=== PATIENT | female | born 1975 | race Hispanic/Latino ===

== ENCOUNTER 2018-03-19 13:24 | Emergency (ER) | payer SELFPAY ==
[~2018-03-19 13:24] MED LIST: ISOVUE-370 76%-LOCM 1 ML ONE
[2018-03-19 14:24] LABS: Mean Corpuscular HGB CONC 35.4 g/dL (32.0-36.0); Mean Corpuscular Hemoglobin 31.9 pg (27.0-31.0); RBC Distribution Width 12.3 % (11.5-14.5); Red Blood Cell (RBC) Count 4.39 mill/uL (4.20-5.40); White Blood Cell (WBC) Count 11.5 thou/uL (4.8-10.8)
[2018-03-19 14:40] LABS: ALT (SGPT) 77 U/L (8-55); AST (SGOT) 44 U/L (5-34); Albumin 4.4 g/dL (3.5-5.0); Alkaline Phosphatase 105 U/L (40-150); Anion Gap 14 mmol/L (10-20); BUN (Urea Nitrogen) 11 mg/dL (7.0-18.7); Bilirubin, Total 0.4 mg/dL (0.2-1.2); Calc. Creatinine Clearance 0 mL/min (70-130); Calcium 10.2 mg/dL (7.8-10.44); Carbon Dioxide 22 mmol/L (22-29); Chloride 105 mmol/L (98-107); Estimated GFR-MDRD Greater than 90; Glucose 99 mg/dL (70-105); Potassium 3.6 mmol/L (3.5-5.1); Protein, Total 8.4 g/dL (6.0-8.3); Sodium 137 mmol/L (136-145)
[2018-03-19 14:46] LABS: #Basophils 0.1 thou/uL (0.0-0.2); #Eosinphils 0.2 thou/uL (0.0-0.7); #Monocytes 0.7 thou/uL (0.11-0.59); #Neutrophils 7.6 thou/uL (1.40-6.50); %Basophils 0.7 % (0.0-1.0); %Eosinophils 1.6 % (0.0-10.0); %Lymphocytes 25.9 % (21.0-51.0); %Monocytes 5.8 % (0.0-10.0); %Neutrophils 65.9 % (42.0-75.0); Mean Platelet Volume 10.8 fL (7.4-10.4); Platelet Count 246 thou/uL (130-400)
[2018-03-19 14:47] LABS: Bilirubin Negative (Negative); Blood, Urine Trace (Negative); Clarity CLEAR (Clear); Glucose, Urine (Dipstick) Negative (Negative); Leukocyte Negative (Negative); Nitrite Negative (Negative); Protein, Urine (Dipstick) Negative (Neg-Trace); Specific Gravity, Urine 1.008 (1.002-1.036); Urobilinogen 0.2 mg/dL (0.2-1.0)
[2018-03-19 14:49] LABS: Bacteria/HPF None Seen HPF (None Seen); Hyaline Casts/LPF 0-3 HYALINE CAST LPF (0-3 Hyaline); RBC/HPF 0-3 HPF (0-3); Squamous Epithelial 0-3 HPF (0-3); WBC/HPF 0-3 HPF (0-3)
[2018-03-19 14:50] LABS: Pregnancy Test - Urine (BHCG) Negative (Negative); Pregu Control Background? CLEAR/WHITE (CLR/WHITE); Pregu Control Bar Appear? YES (CONTROL BAR); Specific Gravity 1.008 (1.002-1.036)
[2018-03-19] MEDS ORDERED: Ketorolac Tromethamine 30 MG/ML VIAL ONE (16:33)
--- NOTE | 2018-03-19 20:05 | CT ---
CT OF THE ABDOMEN AND PELVIS WITH IV CONTRAST: 03/19/18 INDICATIONS: Left lower quadrant abdominal pain with vaginal bleeding. COMPARISON: None. FINDINGS: ABDOMEN: The lung bases are clear. There is severe fatty infiltration of the liver. There is an area of oval hyperdensity within segment of the right hepatic lobe measuring 2.9 cm on image 38 of series 2. The pancreas, adrenal glands, and kidneys are normal appearing. 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 The spleen is normal appearing. The pancreas and adrenal glands are hever l appearing. No free fluid, enlarged lymph nodes are evident. PELVIS: There are hyperdense masses within the uterine body, the largest within the fundus measuring 3.8 cm. An additional fundal hyperdense oval mass is seen measuring 2.3 cm. Both are seen on image 61 of seri es 2. Additional enlarged mass measuring 3.7 cm seen within the right uterine body. These are suspici ous for large fibroids. The unopacified colon appears within normal limits. There is a mild amount of retained stool. The appendix appears normal. The small bowel is of normal caliber. No free fluid is evident. OSSEOUS STRUCTURES: No acute osseous abnormality is demonstrated. There is a bony hemangioma within the left L4 vertebral body. 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 A small bone island is seen within the left ischial tuberosity. IMPRESSION: 1. Large hyperdense masses involving uterus is most suspicious for uterine fibroids. 2. Severe fatty infiltration of the liver. 3. Hyperdense oval mass within the right hepatic lobe may reflect an area of focal fatty sparrin g; however, this is not well characterized on the current study. A followup MRI of the abdomen with a nd without contrast is recommended utilizing a hemangioma protocol to better evaluate this lesion. Th is can be performed as an outpatient. 4. Other findings as above. POS: [facility]
== END 2018-03-19 19:37 | disposition home or self-care (01) ==
LOC: ERS 13:24
DX: D25.9 Leiomyoma of uterus, unspecified (principal); K76.0 Fatty (change of) liver, not elsewhere classified; D64.9 Anemia, unspecified; E78.5 Hyperlipidemia, unspecified; I10 Essential (primary) hypertension; Z79.899 Other long term (current) drug therapy
CPT/HCPCS: 36415; 74177; 80053; 81003; 81015; 81025; 85025; 96361; 96374; J1885